=== PATIENT | female | born 1950 | race Caucasian/White ===

== ENCOUNTER 2017-05-20 15:32 | Outpatient (CLI) | payer MEDICARE ==
--- NOTE | 2017-05-20 17:28 | SJPRAD ---
2 VIEW CHEST: Date: 05/20/17 COMPARISON: None. INDICATION: Cough for 5 days. FINDINGS: Lungs are hyperinflated with interstitial prominence. There is mild biapical pleural irregularity. No lobar consolidation or effusion. The cardiac silhouette is within normal limits of size. Vascular ca lcifications and osseous degenerative changes are present. IMPRESSION: 1. COPD. 2. No focal consolidation. POS: [facility]
== END 2017-05-20 15:33 | disposition home or self-care (01) ==
LOC: MWLC RAD 15:32
PROVIDERS: ATTEND Family Medicine
DX: J44.0 Chronic obstructive pulmonary disease with (acute) lower respiratory infection (principal)

== ENCOUNTER 2017-09-20 07:48 | Outpatient (CLI) | payer MEDICARE ==
--- NOTE | 2017-09-20 10:45 | CT ---
CT NECK SOFT TISSUES WITH CONTRAST: 09/20/2017 HISTORY: A 67-year-old female with a right neck mass (R22.1). FINDINGS: The palpable right neck mass corresponds to a large, approximately 3 x 2.5 x 3.5 cm, solid mass with heterogeneous enhancement, representing a pathologic level II lymph node. Broadly abutting the post erior surface of this mass, there is a daughter pathologic lymph node, measuring approximately 1 x 0. 8 x 1.5 cm. There are additional pathologic right level II and level III lymph nodes. For example, there is a right level III or IV lymph node, measuring approximately 1 x 0.5 x 1.4 cm. The upper esophagus, anterior to the T1 vertebral body, has circumferential mural thickening. Multiple enlarged mediastinal lymph nodes are visualized, incompletely imaged. No neoplastic tumor is identified in the pharyngeal mucosal space, including in the oropharynx, nasop harynx, and larynx. There are a few tiny bilateral thyroid nodules, less than 1 cm in size each, non specific. The trachea is patent and clear. The lung apices are grossly clear. No destructive osseo us lesion is identified. The submandibular, parotid, parapharyngeal, retropharyngeal, and sublingual spaces appear normal. The jaws are edentulous. There are moderate to severe degenerative changes a t the bilateral TMJ's. There are dilated veins (varicosities) among the bilateral posterior paraspin al musculature. There is multilevel high-grade degenerative facet disease bilaterally, right worse t lopez left. IMPRESSION: 1. Pathologic right cervical lymphadenopathy, highly suspicious for malignancy, at levels II and III or IV. The largest one corresponds to the palpable lump and measures 3.5 x 2.5 x 3 cm. 2. Circumferential mural thickening of the upper esophagus. Recommend endoscopy to rule out esophag eal cancer. 3. Mediastinal lymphadenopathy, incompletely imaged. Recommend CT of the chest (preferably with int ravenous contrast, at least two or three days after the current CT). CODE T POS: [facility]
[2017-09-20] MEDS ORDERED: Iopamidol 370 76% 100 ML VIAL ONE (16:05)
== END 2017-09-20 07:49 | disposition home or self-care (01) ==
LOC: CT 07:48
PROVIDERS: ATTEND Specialist
DX: R22.1 Localized swelling, mass and lump, neck (principal); K22.8 Other specified diseases of esophagus
CPT/HCPCS: 70491; 82565

== ENCOUNTER 2017-09-22 05:47 | Day surgery (SDC) | payer MEDICARE ==
[2017-09-21 17:31] VITALS: BMI 20.2
[2017-09-22 06:42] LABS: Hemoglobin 12.8 g/dL (12.0-16.0)
[2017-09-22 06:55] LABS: Anion Gap 15 mmol/L (10-20); BUN (Urea Nitrogen) 27 mg/dL (9.8-20.1); Calc. Creatinine Clearance 36 mL/min (70-130); Calcium 9.4 mg/dL (7.8-10.44); Carbon Dioxide 23 mmol/L (23-31); Chloride 105 mmol/L (98-107); Estimated GFR-MDRD 42; Glucose 100 mg/dL (80-115); Potassium 3.9 mmol/L (3.5-5.1); Sodium 139 mmol/L (136-145)
[2017-09-22] MEDS ORDERED: Fentanyl 100 MCG/2 ML VIAL ONE ×2 (08:22→10:56)
[2017-09-22] MEDS ORDERED: EPINEPHrine 1 MG/ML AMP ONE ×2 (08:28→08:29)
[2017-09-22] MEDS ORDERED: Lidocaine 1% w/Epinephrine 1:200K 30 ML VIAL ONE (08:28)
[2017-09-22] MEDS ORDERED: Bacitracin Zinc Ointment 30 gm TUBE ONE ×2 (08:28→08:29)
[2017-09-22] MEDS ORDERED: Ondansetron HCl/PF 4 MG/2 ML Vial ONE ×2 (08:32→16:33)
--- NOTE | 2017-09-22 13:16 | OP ---
DATE OF PROCEDURE: 09/22/2017 SURGEON: Dr. Ezra Brown PREOPERATIVE DIAGNOSES: 1. Large right neck mass. 2. Esophageal lesion, level 2. PROCEDURE: 1. Excision of right neck mass. 2. Modified right level 2 . FINDINGS: 1. Right level 2 and level 3 neck dissection. 2. Direct laryngoscopy. 3. Rigid esophagoscopy. PROCEDURE IN DETAIL: After consent was obtained, the patient was identified, brought to the operatin g room and placed on the table in supine position. General endotracheal anesthesia was obtained. Th e patient was positioned for surgery. The neck was prepped and draped and an area of intended incisi on 2 fingerbreadths below the angle of mandible was infiltrated with 1% lidocaine with 1:100,000 epin ephrine. Incision was made with a 10 blade and carried down through skin, subcutaneous tissues, and platysma. Subplatysmal flaps were placed and a self-retaining retractor was placed. We then meticul ously dissected the mass from the surrounding tissues with care not to injure branches of the facial nerve or facial vein. We then removed the specimen and sent it for histologic evaluation asking for a fresh lymphoma panel as well as normal histologic evaluation. Hemostasis was obtained. We then pe rformed a regional lymph node dissection of that area including both level 2 and level 3 nodes with c are and sent that specimen as well for histologic evaluation. Subsequent to that, we closed the woun d in layers with absorbable Monocryl being used to reapproximate the deep tissues and a running Prole ne for the skin. Sterile dressing was applied. The patient was then repositioned for direct laryngoscopy, underwent systematic laryngeal evaluation. Oropharynx examination was within normal limits. There were no tonsil lesion and in fact, the tons ils appeared to have been removed. The larynx appeared normal as was the esophageal inlet. We then proceeded with rigid esophagoscopy under video monitoring. We placed the cervical esophagoscope down to the level of the gastroesophageal junction, and then removed it slowly while carefully inspecting the mucosa. There were no obvious mucosal lesions; however, it was tight near the cricopharyngeal r egion suggesting the possibility of a ring. The patient was then awakened, extubated, and [facility] remained in stable condition prior to discharge home.
[2017-09-22] MEDS ORDERED: PROPOFOL 200 MG/20 ML VIAL ONE (16:33)
[2017-09-22] MEDS ORDERED: Lidocaine 1% PF 5 ML VIAL ONE (16:33)
[2017-09-22] MEDS ORDERED: Succinylcholine Chloride 20 MG/ML 10 ml SYRINGE FS ONE (16:33)
[2017-09-22] MEDS ORDERED: ePHEDrine/0.9% NaCl/PF SYRINGE 50 mg/10 ml ONE (16:33)
[2017-09-22] MEDS ORDERED: Dexamethasone 20 MG/5 ML VIAL ONE (16:33)
[2017-09-22] MEDS ORDERED: PHENYLEPHRINE-NS 100 MCG/ML 10 ML SYRINGE ONE (16:33)
--- NOTE | 2017-09-25 08:47 | EKG ---
Test Reason : PREOP Blood Pressure : / mmHG Vent. Rate : 079 BPM Atrial Rate : 079 BPM P-R Int : 142 ms QRS Dur : 138 ms QT Int : 472 ms P-R-T Axes : 073 -35 109 degrees QTc Int : 541 ms Sinus rhythm with occasional Premature ventricular complexes Left axis deviation Left bundle branch block Abnormal ECG No previous ECGs available Confirmed by GHAZALA FLORES, FERNANDA ([id number]) on 09/25/2017 8:47:31 AM Referred By: ROSEANNA Confirmed By:FERNANDA VIVAR MD
== END 2017-09-22 13:50 | disposition home or self-care (01) ==
LOC: SDC 05:47
PROVIDERS: ATTEND Specialist
PROC: 0CJS8ZZ Inspection of Larynx, Via Natural or Artificial Opening Endoscopic (ICD-10-PCS; principal; 2017-09-22)
PROC: 0JB40ZZ Excision of Right Neck Subcutaneous Tissue and Fascia, Open Approach (ICD-10-PCS; 2017-09-22)
PROC: 0DJ08ZZ Inspection of Upper Intestinal Tract, Via Natural or Artificial Opening Endoscopic (ICD-10-PCS; 2017-09-22)
PROC: 07B10ZX Excision of Right Neck Lymphatic, Open Approach, Diagnostic (ICD-10-PCS; 2017-09-22)
DX: D11.7 Benign neoplasm of other major salivary glands (principal); R22.1 Localized swelling, mass and lump, neck; K22.8 Other specified diseases of esophagus; I10 Essential (primary) hypertension; F17.210 Nicotine dependence, cigarettes, uncomplicated; E78.5 Hyperlipidemia, unspecified; J45.909 Unspecified asthma, uncomplicated; L40.9 Psoriasis, unspecified; Z79.83 Long term (current) use of bisphosphonates; Z79.899 Other long term (current) drug therapy; Z88.5 Allergy status to narcotic agent
CPT/HCPCS: 80048; 85014; 85018; 88184; 88305; 88307; 93005; 93010; 96374; J0171; J1100; J2001; J2405; J2704; J3010

== ENCOUNTER 2019-02-07 12:54 | Outpatient (CLI) | payer MEDICARE ==
--- NOTE | 2019-02-07 13:25 | CT ---
EXAM: CT chest without contrast per low-dose cancer screening protocol HISTORY: History of smoking and nicotine dependence COMPARISON: None TECHNIQUE: Multiple contiguous axial images were obtained in a CT of the chest without contrast per l ow-dose cancer screening protocol. Sagittal and coronal reformats were performed. FINDINGS: Pulmonary nodules: No suspicious pulmonary nodules are seen. No focal infiltrates are seen. Pleural space: No pneumothorax or pleural effusion are seen. Heart: The heart is normal in size. Calcifications are seen in the coronary arteries. Mediastinum: No hilar or mediastinal lymphadenopathy appreciated on this limited noncontrast examinat ion. Bones: Mild degenerative changes in the spine. Visualized subdiaphragmatic structures: Unremarkable. IMPRESSION: Lung RADS category 1-negative.
== END 2019-02-07 12:55 | disposition home or self-care (01) ==
LOC: CT 12:54
PROVIDERS: ATTEND Family Medicine
DX: F17.210 Nicotine dependence, cigarettes, uncomplicated (principal)
CPT/HCPCS: G0297

== ENCOUNTER 2019-08-20 13:38 | Outpatient (CLI) | payer MEDICARE ==
--- NOTE | 2019-08-20 14:25 | BD ---
EXAM: Bone densitometry using DEXA HISTORY: 69 yo female. Screening for postmenopausal osteoporosis FINDINGS: L1--bone mineral density 0.779 g/sq cm; T score -1.9 ; Z score 0.0 L2--bone mineral density 0.728 g/sq cm; T score -2.7 ; Z score -0.6 L3--bone mineral density 0.755 g/sq cm; T score -3.0 ; Z score -0.7 L4--bone mineral density 0.747 g/sq cm; T score -2.9 ; Z score -0.5 Total L1-L4--bone mineral density 0.752 g/sq cm; T score -2.7 ; Z score -0.5 Left femoral neck--bone mineral density0.526; T score -2.9 ; Z score -1.1 Total proximal left femur--bone mineral density 0.721; T score -1.8 ; Z score -0.3 IMPRESSION: Osteoporosis
== END 2019-08-20 13:39 | disposition home or self-care (01) ==
LOC: BICMAMMO 13:38
PROVIDERS: ATTEND Family Medicine
DX: M81.0 Age-related osteoporosis without current pathological fracture (principal)
CPT/HCPCS: 77080

== ENCOUNTER 2019-08-22 08:43 | Outpatient (CLI) | payer MEDICARE ==
--- NOTE | 2019-08-22 09:34 | ULT ---
ULTRASOUND ABDOMINAL AORTA: Date: 08/22/2019 HISTORY: Screening for abdominal aortic aneurysm. Wellness screening. FINDINGS: The abdominal aorta measures 1.8 cm in maximum AP dimension. IMPRESSION: No evidence of abdominal aortic aneurysm. POS: [facility]
== END 2019-08-22 08:44 | disposition home or self-care (01) ==
LOC: BICULT 08:43
PROVIDERS: ATTEND Family Medicine
DX: Z13.6 Encounter for screening for cardiovascular disorders (principal); Z00.00 Encounter for general adult medical examination without abnormal findings
CPT/HCPCS: 76775

== ENCOUNTER 2020-03-11 10:10 | Outpatient (CLI) | payer MEDICARE ==
--- NOTE | 2020-03-11 11:29 | ULT ---
ULTRASOUND RETROPERITONEUM COMPLETE (RENAL) DOPPLER DUPLEX: DATE: 03/11/2020 HISTORY: ICD-10: N 18.3, right kidney disease stage III. 69-year-old female TECHNIQUE: Grayscale, color-flow, and spectral analysis, of bilateral kidneys and renal artery branches. FINDINGS: Highest peak systolic velocities in centimeters per second: Right renal artery: 200 Left renal artery: 185 Aorta: 70 Right renal artery/aorta ratio: 2.9 Left renal artery/aorta ratio: 2.7 Resistive index: Right arcuate: 0.8 Left arcuate: 0.8 Right renal dimensions: 8.5 x 3 x 3 cm. Left renal dimensions: 9.5 x 4.5 x 4 cm. No hydronephrosis. Renal parenchymal echogenicity and thickness are normal for age. Urinary bladder volume 15 mL, nearly empty, at time of scan. IMPRESSION: 1) elevated resistive index in bilateral kidneys. 2) no hydronephrosis. 3) elevated peak systolic velocities in bilateral renal arteries suggestive of possible bilateral kay al artery stenosis.
== END 2020-03-11 10:11 | disposition home or self-care (01) ==
LOC: BICULT 10:10
PROVIDERS: ATTEND Family Medicine
DX: N18.30 Chronic kidney disease, stage 3 unspecified (principal); R93.421 Abnormal radiologic findings on diagnostic imaging of right kidney; R93.422 Abnormal radiologic findings on diagnostic imaging of left kidney
CPT/HCPCS: 36415; 76770; 80053; 83540; 83550; 83970; 85025; 93975

== ENCOUNTER 2021-06-03 13:14 | Outpatient (CLI) | payer MEDICARE | END 2021-06-03 13:15 | disposition home or self-care (01) | LOC: BICCT 13:14 | PROVIDERS: ATTEND Family Medicine | DX: Z12.2 Encounter for screening for malignant neoplasm of respiratory organs (principal); F17.210 Nicotine dependence, cigarettes, uncomplicated; R91.1 Solitary pulmonary nodule | CPT/HCPCS: 71271 ==

== ENCOUNTER 2022-06-03 12:24 | Outpatient (CLI) | payer MEDICARE | END 2022-06-03 12:25 | disposition home or self-care (01) | LOC: BICCT 12:24 | PROVIDERS: ATTEND Family Medicine | DX: Z12.2 Encounter for screening for malignant neoplasm of respiratory organs (principal); F17.210 Nicotine dependence, cigarettes, uncomplicated | CPT/HCPCS: 71271 ==

== ENCOUNTER 2023-01-17 20:06 | Emergency (ER) | payer MEDICARE ==
[2023-01-17] MEDS ORDERED: Rivaroxaban 15 MG TAB PO SCH (21:00)
== END 2023-01-17 20:09 | disposition home or self-care (01) ==
LOC: ERS 20:06
DX: I82.402 Acute embolism and thrombosis of unspecified deep veins of left lower extremity (principal); I10 Essential (primary) hypertension
CPT/HCPCS: 99283

== ENCOUNTER 2023-01-19 13:18 | Emergency (ER) | payer MEDICARE ==
[~2023-01-19 13:18] MED LIST: Iopamidol-370 76% 500 ML MDV (1 ML CHARGE) ONE
[2023-01-19 14:10] LABS: #Basophils 0.1 thou/uL (0.0-0.2); #Eosinphils 0.2 thou/uL (0.0-0.7); #Monocytes 1.8 thou/uL (0.11-0.59); #Neutrophils 13.7 thou/uL (1.40-6.50); %Basophils 0.3 % (0.0-1.0); %Eosinophils 1.1 % (0.0-10.0); %Lymphocytes 7.1 % (21.0-51.0); %Monocytes 10.5 % (0.0-10.0); %Neutrophils 78.6 % (42.0-75.0); Hematocrit 25.8 % (36.0-47.0); Hemoglobin 8.3 g/dL (12.0-16.0); Mean Corpuscular HGB CONC 32.2 g/dL (32.0-36.0); Mean Corpuscular Hemoglobin 30.6 pg (27.0-31.0); Mean Corpuscular Volume 95.2 fl (78.0-98.0); Mean Platelet Volume 9.3 fL (7.4-10.4); Platelet Count 402 10x3/uL (130-400); RBC Distribution Width 14.9 % (11.5-14.5); Red Blood Cell (RBC) Count 2.71 mill/uL (4.20-5.40); White Blood Cell (WBC) Count 17.4 10x3/uL (4.8-10.8)
[2023-01-19 14:36] LABS: ALT (SGPT) Less than 7 U/L (8-55); AST (SGOT) 14 U/L (5-34); Albumin 3.9 g/dL (3.4-4.8); Alkaline Phosphatase 76 U/L (40-110); Anion Gap 15 mmol/L (10-20); BUN (Urea Nitrogen) 24 mg/dL (9.8-20.1); Bilirubin, Total 0.6 mg/dL (0.2-1.2); Calc. Creatinine Clearance 0 mL/min (70-130); Calcium 8.9 mg/dL (7.8-10.44); Carbon Dioxide 22 mmol/L (23-31); Chloride 108 mmol/L (98-107); Estimated GFR 25; Globulin 3.1 g/dL (2.4-3.5); Glucose 101 mg/dL (83-110); Potassium 3.7 mmol/L (3.5-5.1); Sodium 141 mmol/L (136-145)
[2023-01-19 14:41] LABS: Troponin I 0.018 ng/mL (< 0.028)
[2023-01-19] MEDS ORDERED: Morphine 4 MG/ML VIAL ONE (14:57)
[2023-01-19] MEDS ORDERED: carBAMazepine 100 mg Chewable Tablet PO SCH (16:00)
== END 2023-01-19 20:01 ==
LOC: ERS 13:18
DX: G50.0 Trigeminal neuralgia (principal); I82.402 Acute embolism and thrombosis of unspecified deep veins of left lower extremity; I10 Essential (primary) hypertension; F17.210 Nicotine dependence, cigarettes, uncomplicated
CPT/HCPCS: 70498; 71275; 80053; 83880; 84484; 85025; 93005; 96372; 96374; J1650; J2270; Q9967

== ENCOUNTER 2023-01-25 07:32 | Emergency (ER) | payer MEDICARE ==
[2023-01-25 08:32] LABS: #Basophils 0.1 thou/uL (0.0-0.2); #Eosinphils 0.7 thou/uL (0.0-0.7); #Monocytes 1.4 thou/uL (0.11-0.59); #Neutrophils 8.6 thou/uL (1.40-6.50); %Basophils 0.8 % (0.0-1.0); %Eosinophils 5.4 % (0.0-10.0); %Monocytes 11.6 % (0.0-10.0); %Neutrophils 68.7 % (42.0-75.0); Hematocrit 29.9 % (36.0-47.0); Hemoglobin 9.5 g/dL (12.0-16.0); Mean Corpuscular HGB CONC 31.8 g/dL (32.0-36.0); Mean Corpuscular Hemoglobin 30.7 pg (27.0-31.0); Mean Corpuscular Volume 96.8 fl (78.0-98.0); Mean Platelet Volume 9.1 fL (7.4-10.4); Platelet Count 500 10x3/uL (130-400); RBC Distribution Width 14.4 % (11.5-14.5); Red Blood Cell (RBC) Count 3.09 mill/uL (4.20-5.40); White Blood Cell (WBC) Count 12.4 10x3/uL (4.8-10.8)
[2023-01-25 08:58] LABS: ALT (SGPT) 7 U/L (8-55); AST (SGOT) 25 U/L (5-34); Albumin 3.1 g/dL (3.4-4.8); Alkaline Phosphatase 67 U/L (40-110); Anion Gap 14 mmol/L (10-20); BUN (Urea Nitrogen) 17 mg/dL (9.8-20.1); Bilirubin, Total 0.6 mg/dL (0.2-1.2); Calc. Creatinine Clearance 0 mL/min (70-130); Calcium 8.1 mg/dL (7.8-10.44); Carbon Dioxide 21 mmol/L (23-31); Chloride 108 mmol/L (98-107); Estimated GFR 41; Globulin 2.7 g/dL (2.4-3.5); Glucose 93 mg/dL (83-110); Potassium 3.9 mmol/L (3.5-5.1); Protein, Total 5.8 g/dL (5.8-8.1); Sodium 139 mmol/L (136-145)
[2023-01-25 09:02] LABS: Troponin I 0.017 ng/mL (< 0.028)
== END 2023-01-25 10:47 | disposition home or self-care (01) ==
LOC: ERS 07:32
DX: R06.02 Shortness of breath (principal); H92.02 Otalgia, left ear; D64.9 Anemia, unspecified; F17.210 Nicotine dependence, cigarettes, uncomplicated; I10 Essential (primary) hypertension
CPT/HCPCS: 36415; 71045; 80053; 84484; 85025; 93005

== ENCOUNTER 2023-07-20 10:32 | Outpatient (CLI) | payer MEDICARE | END 2023-07-20 10:33 | disposition home or self-care (01) | LOC: BICULT 10:32 | PROVIDERS: ATTEND Internal Medicine Nephrology | DX: N18.4 Chronic kidney disease, stage 4 (severe) (principal) | CPT/HCPCS: 76770 ==